=== PATIENT | male | born 1980 | race Caucasian/White ===

== ENCOUNTER 2016-05-13 21:44 | Emergency (ER) | payer OTHER ==
[2016-05-13 22:50] LABS: BASOPHIL 0.2 % (0-2); EOSINOPHIL 0.8 % (0-5); HCT 40.6 % (42.0-52.0); HGB 14.3 g/dl (13.2-18.0); LYMPHOCYTE 17.6 % (15-48); MCH 30.6 pg (25.0-31.0); MCHC 35.2 g/dL (32.0-36.0); MCV 86.8 fL (78.0-100.0); MONOCYTE 12.3 % (0-12); NEUTROPHIL 69.1 % (41-80); PLT 342 K/uL (150-400); RBC 4.68 M/uL (4.70-6.00); WBC 9.2 K/uL (4.0-10.5)
[2016-05-13 22:57] LABS: ALBUMIN 4.9 g/dL (3.5-5.0); BILIRUBIN NEGATIVE (NEGATIVE); BILIRUBIN - TOTAL 0.9 mg/dL (0.1-1.0); BLOOD NEGATIVE Ery/uL (NEGATIVE); CLARITY CLEAR (CLEAR); COLOR YELLOW (YELLOW); CREATININE 1.1 mg/dL (0.7-1.2); GLOBULIN (CALCULATION) 3.3 g/dL (2.2-4.2); GLUCOSE (U) NORMAL (NORMAL); KETONE (U) NEGATIVE (NEGATIVE); LEUKOCYTES NEGATIVE Leu/uL (NEGATIVE); NITRITE NEGATIVE (NEGATIVE); POTASSIUM 3.8 mmol/L (3.5-5.1); SPECIFIC GRAVITY >=1.030 (1.001-1.030); TOTAL PROTEIN 8.2 g/dL (6.4-8.3); UROBILINOGEN 0.2 mg/dL (0.2-1.0)
[2016-05-13 22:58] LABS: ACETAMINOPHEN (TYLENOL) < 5.0 ug/mL (10.0-30.0); ALCOHOL (ETOH) MEDICAL NONE DETECTED; SALICYLATE < 6 ug/mL (0-300)
[2016-05-13 22:59] LABS: PROTEIN NEGATIVE (NEGATIVE)
[2016-05-13 23:06] LABS: AMPHETAMINES POSITIVE (NEGATIVE); BARBITURATES NEGATIVE (NEGATIVE); BENZODIAZEPINES NEGATIVE (NEGATIVE); COCAINE NEGATIVE (NEGATIVE); MARIJUANA (THC) NEGATIVE (NEGATIVE); METHADONE NEGATIVE (NEGATIVE); TRICYCLIC ANTIDEPRESSANT NEGATIVE (NEGATIVE)
== END 2016-05-13 23:55 | disposition home or self-care (01) ==
LOC: FER 21:44
PROVIDERS: Emergency Medicine
DX: T43.621A Poisoning by amphetamines, accidental (unintentional), initial encounter (principal); T40.3X1A Poisoning by methadone, accidental (unintentional), initial encounter; R41.82 Altered mental status, unspecified; F15.10 Other stimulant abuse, uncomplicated; F11.10 Opioid abuse, uncomplicated; B19.20 Unspecified viral hepatitis C without hepatic coma; I10 Essential (primary) hypertension
CPT/HCPCS: 36415; 71010; 80053; 80305; 81003; 85025; 93005; G0480